=== PATIENT | female | born 2000 | race Hispanic/Latino ===

== ENCOUNTER 2022-02-06 07:12 | Day surgery (SDC) | payer MEDICAID ==
[2022-02-04 11:50] LABS: INR 0.96 (0.85-1.15); PROTHROMBIN TIME 10.5 SEC (9.6-11.6)
[2022-02-04 11:51] LABS: PARTIAL THROMBOPLASTIN TIME 28.1 SEC (26.3-35.5)
[2022-02-04] MEDS: CEFAZOLIN SODIUM 1 GM VIAL IVP SCH (13:30)
[2022-02-05 10:03] VITALS: BP 136/74
[2022-02-06] VITALS (17 sets, daily range): BP systolic 131–153; BP diastolic 67–87
[~2022-02-06] VITALS: Ht 162.6 cm; Wt 106.7 kg
[~2022-02-06 07:12] MED LIST: BUPIVACAINE/PF 0.5% 30ML VIAL ONE; LACTATED RINGERS 1000ML 1,000 ML IV ONE; prenatal PO
[2022-02-06] MEDS ORDERED: PROPOFOL 10 MG/ML 20ML VIAL IV ONE (09:15)
[2022-02-06] MEDS ORDERED: FENTANYL CITRATE PF 50 MCG/1 ML 5ML AMP IV ONE (09:15)
[2022-02-06] MEDS ORDERED: ONDANSETRON 4MG INJ ONE (09:15)
[2022-02-06] MEDS ORDERED: MIDAZOLAM HCL 1 MG/ML 2ML VIAL ONE (09:15)
[2022-02-06] MEDS ORDERED: ROCURONIUM 10MG/1ML SYR 10 MG/ML ML ONE (09:16)
[2022-02-06] MEDS: CEFAZOLIN SODIUM 1 GM VIAL IVP SCH (09:30)
[2022-02-06] MEDS ORDERED: MEPERIDINE-PF 25 MG/ML SYG ONE ×4 (09:47→11:01)
[2022-02-06] MEDS ORDERED: EPHEDRINE SULFATE 50 MG/ML AMPULE ONE (09:50)
[2022-02-06] MEDS ORDERED: GLYCOPYRROLATE 1 MG/5 ML SYRINGE ONE (10:05)
[2022-02-06] MEDS ORDERED: NEOSTIGMINE 5MG/5ML SYR IV ONE (10:06)
[2022-02-06] MEDS ORDERED: KETOROLAC 30MG VIAL (30MG/ML) ONE (10:29)
== END 2022-02-06 12:40 | disposition home or self-care (01) ==
LOC: DAH 07:12
PROVIDERS: ATTEND Surgery
DX: K80.64 Calculus of gallbladder and bile duct with chronic cholecystitis without obstruction (principal); K82.8 Other specified diseases of gallbladder; Z83.3 Family history of diabetes mellitus; Z98.890 Other specified postprocedural states; Z79.01 Long term (current) use of anticoagulants
CPT/HCPCS: 84703; 85610; 85730; 87426; 36415; 47562; A6260; A4663; J7030; J7120; J3010; J0690; J3490 ×3; J2710; J2250; J2405; S0020; J2175 ×4; G0168; C1769 ×3; A4649 ×2; A4930; A4215; A4223; A4222; A4221; A4600; J1885; J2704